=== PATIENT | female | born 1990 | race Caucasian/White ===

== ENCOUNTER 2017-04-26 18:56 | Emergency (ER) | payer MEDICAID ==
[~2017-04-26] VITALS: Ht 162.6 cm; Wt 63.5 kg
--- NOTE | 2017-04-26 19:37 | NUR ---
CALLED PT IN [place], NO ERSPONSE
[2017-04-26 20:13] VITALS: BP 136/87
[2017-04-26] MEDS ORDERED: TDAP [DIPH/PERTUSSIS/TET] 0.5 ML VIAL IM ONE (20:46)
[2017-04-26] MEDS: TDAP [DIPH/PERTUSSIS/TET] 0.5 ML VIAL IM ONE (20:52)
--- NOTE | 2017-04-26 20:53 | NUR ---
WOUND CARE PROVIDED. PT D/C HOME IN STABLE CONDITION,.
== END 2017-04-26 20:58 | disposition home or self-care (01) ==
LOC: ER 18:58
DX: S81.852A Open bite, left lower leg, initial encounter (principal); Z23 Encounter for immunization; W54.0XXA Bitten by dog, initial encounter; Y93.89 Activity, other specified; Y92.89 Other specified places as the place of occurrence of the external cause; Y99.8 Other external cause status
CPT/HCPCS: 90471; 90715; 99283; A4606; A6402; Z7610